=== PATIENT | female | born 1990 | race African-American/Black ===

== ENCOUNTER → 2019-01-16 | Outpatient (CLI) | payer MEDICAID ==
[2019-01-16 20:24] LABS: BACTERIA (WET MOUNT) 3+ BACTERIA SEEN; EPITHELIALS (WET MOUNT) 3+ EPITHELIALS SEEN; RBCS (WET MOUNT) 1+ RBCS SEEN; T.VAGINALIS (WET MOUNT) NO TRICHOMONAS SEEN; WBCS (WET MOUNT) 1+ WBCS SEEN; YEAST (WET MOUNT) NO YEAST SEEN
== END ==
LOC: LAB 19:54
PROVIDERS: ATTEND Nurse Practitioner Acute Care
DX: N89.8 Other specified noninflammatory disorders of vagina (principal)
CPT/HCPCS: 87210